=== PATIENT | female | born 1950 ===

== ENCOUNTER → 2018-07-01 11:48 | Outpatient (CLI) | payer OTHER ==
[~2018-07-01 11:48] MED LIST: METFORMIN HCL500 MG PO
== END | disposition home or self-care (01) ==
LOC: LAB 11:48
DX: N39.0 Urinary tract infection, site not specified (principal); Z22.322 Carrier or suspected carrier of Methicillin resistant Staphylococcus aureus; D68.8 Other specified coagulation defects; I49.8 Other specified cardiac arrhythmias

== ENCOUNTER → 2018-07-25 | Outpatient (CLI) | payer OTHER | END | disposition home or self-care (01) | LOC: NUCLEAR 16:04 | DX: I87.2 Venous insufficiency (chronic) (peripheral) (principal) ==